=== PATIENT | female | born 1965 | race Caucasian/White ===

== ENCOUNTER 2021-02-04 13:23 | Outpatient (CLI) | payer OTHER | END 2021-02-04 13:24 | disposition home or self-care (01) | LOC: CSHMAMMO 13:23 | PROVIDERS: ATTEND Internal Medicine | DX: Z12.31 Encounter for screening mammogram for malignant neoplasm of breast (principal) | CPT/HCPCS: 77063; 77067 ==

== ENCOUNTER 2024-05-23 13:51 | Outpatient (CLI) | payer OTHER | END 2024-05-23 13:52 | disposition home or self-care (01) | LOC: CSHMAMMO 13:51 | PROVIDERS: ATTEND Internal Medicine | DX: Z12.31 Encounter for screening mammogram for malignant neoplasm of breast (principal) | CPT/HCPCS: 77063; 77067 ==

== ENCOUNTER 2025-07-04 12:31 | Outpatient (CLI) | payer BC | END 2025-07-04 12:32 | disposition home or self-care (01) | LOC: CSHMAMMO 12:31 | PROVIDERS: ATTEND Internal Medicine | DX: Z12.31 Encounter for screening mammogram for malignant neoplasm of breast (principal) | CPT/HCPCS: 77063; 77067 ==